=== PATIENT | female | born 1955 | race Caucasian/White ===

== ENCOUNTER 2019-08-17 17:58 | Inpatient (IN) | payer OTHER ==
[~2019-08-17] VITALS: Ht 157.5 cm; Wt 66.7 kg
[2019-08-17 18:09] VITALS: Ht 157.5 cm; Wt 66.7 kg
[2019-08-17 19:04] LABS: microscopic required? YES; urine erythrocyte 2+ (NEGATIVE)
[2019-08-17 19:04] LABS: BASOPHIL % 0.7 % (0-2); PLATELET COUNT 179 x10^3mcL (130-400); RED CELL DISTRIBUTION WIDTH 13.7 % (11.5-14.5)
[2019-08-17 19:18] LABS: CALCIUM 8.9 mg/dL (8.5-10.1); CHLORIDE SERUM 97 mmol/L (98-107); CREATININE SERUM 0.8 mg/dL (0.6-1.0); GFR1 > 60 mL/min; GLUCOSE SERUM 99 mg/dL (74-106); POTASSIUM SERUM 3.4 mmol/L (3.5-5.1); SODIUM SERUM 133 mmol/L (136-145)
[2019-08-17 19:24] LABS: ALBUMIN 3.4 g/dL (3.4-5.0); ALKALINE PHOSPHATASE 78 U/L (46-116); ALT/SGPT 30 U/L (14-59); AST/SGOT 24 U/L (15-37); BILIRUBIN TOTAL 1.4 mg/dL (0.20-1.00); LIPASE 65 IU/L (73-393); TOTAL PROTEIN, SERUM 7.9 g/dL (6.4-8.2)
[2019-08-17 21:23] LABS: CHOLESTEROL/HDL RATIO 1.8; MAGNESIUM 2.1 mg/dL (1.8-2.4); PHOSPHOROUS 3.1 mg/dL (2.5-4.9)
[2019-08-17 23:28] VITALS: BP 108/53
[2019-08-18 06:02] VITALS: BP 110/53
[2019-08-18 07:34] LABS: BASOPHIL % 0.4 % (0-2); PLATELET COUNT 161 x10^3mcL (130-400); RED CELL DISTRIBUTION WIDTH 13.3 % (11.5-14.5)
[2019-08-18 08:23] VITALS: BP 96/42
[2019-08-18 09:45] LABS: CALCIUM 8.6 mg/dL (8.5-10.1); CHLORIDE SERUM 101 mmol/L (98-107); CREATININE SERUM 0.7 mg/dL (0.6-1.0); GFR1 > 60 mL/min; GLUCOSE SERUM 80 mg/dL (74-106); MAGNESIUM 2.2 mg/dL (1.8-2.4); PHOSPHOROUS 3.1 mg/dL (2.5-4.9); POTASSIUM SERUM 3.7 mmol/L (3.5-5.1); SODIUM SERUM 137 mmol/L (136-145)
[2019-08-18 13:38] VITALS: BP 108/41
[2019-08-18 17:05] VITALS: BP 97/44
[2019-08-18 20:53] VITALS: BP 118/50
[2019-08-19 05:16] VITALS: BP 111/58
[2019-08-19 06:59] LABS: PLATELET COUNT 184 x10^3mcL (130-400); RED CELL DISTRIBUTION WIDTH 13.5 % (11.5-14.5)
[2019-08-19 07:02] LABS: BASOPHIL % 0 % (0-2)
[2019-08-19 07:16] LABS: ALBUMIN 2.5 g/dL (3.4-5.0); ALKALINE PHOSPHATASE 75 U/L (46-116); ALT/SGPT 54 U/L (14-59); AST/SGOT 53 U/L (15-37); BILIRUBIN TOTAL 0.7 mg/dL (0.20-1.00); CALCIUM 8.6 mg/dL (8.5-10.1); CARBON DIOXIDE 22.2 mmol/L (21-32); CHLORIDE SERUM 103 mmol/L (98-107); CREATININE SERUM 0.7 mg/dL (0.6-1.0); GFR1 > 60 mL/min; GLUCOSE SERUM 122 mg/dL (74-106); SODIUM SERUM 136 mmol/L (136-145); TOTAL PROTEIN, SERUM 6.8 g/dL (6.4-8.2)
[2019-08-19 09:01] VITALS: BP 111/52
[2019-08-19] MEDS ORDERED: NORCO1 TA2 PO (11:36)
[2019-08-19 12:20] VITALS: BP 101/46
[2019-08-19 12:25] VITALS: BP 101/46
[2019-08-19 13:37] VITALS: BP 106/53
== END 2019-08-19 15:18 | disposition home or self-care (01) | DRG 710 ==
LOC: ED 17:58 → MU 20:50
PROVIDERS: Emergency Medicine; Surgery; ADMIT Internal Medicine; ATTEND Internal Medicine
PROC: 0FT44ZZ Resection of Gallbladder, Percutaneous Endoscopic Approach (ICD-10-PCS; principal; 2019-08-18 18:30)
DX: A41.9 Sepsis, unspecified organism (principal); K65.9 Peritonitis, unspecified; E87.8 Other disorders of electrolyte and fluid balance, not elsewhere classified; K80.00 Calculus of gallbladder with acute cholecystitis without obstruction; E87.1 Hypo-osmolality and hyponatremia; E87.6 Hypokalemia; E86.0 Dehydration; E80.6 Other disorders of bilirubin metabolism
CPT/HCPCS: 83880; 94150; G0378; J0694; J1170; J1885; J2270; J2405; J2543; J3010; J3490; J7030; Q0092; Q9967